=== PATIENT | female | born 1990 | race African-American/Black ===

== ENCOUNTER 2019-05-11 10:54 | Emergency (ER) | payer OTHER ==
[~2019-05-11] VITALS: Ht 167.6 cm; Wt 68.0 kg
[2019-05-11] MEDS ORDERED: PRENATAL PO (11:04)
[2019-05-11 11:05] VITALS: BP 113/90
[2019-05-11] MEDS ORDERED: LIDOCAINE PAIN1 EACH TOP (11:20)
== END 2019-05-11 11:20 | disposition home or self-care (01) ==
LOC: ER 10:54
DX: O26.891 Other specified pregnancy related conditions, first trimester (principal); M54.6 Pain in thoracic spine; Z3A.01 Less than 8 weeks gestation of pregnancy; Z90.49 Acquired absence of other specified parts of digestive tract